=== PATIENT | female | born 1970 | race Caucasian/White ===

== ENCOUNTER 2019-02-26 11:06 | Emergency (ER) | payer SELFPAY ==
[~2019-02-26] VITALS: Wt 78.0 kg
[2019-02-26 11:10] VITALS: BP 152/98; PULSE 99; RESP 18
== END 2019-02-26 12:47 | disposition left against medical advice (07) ==
LOC: FTE 11:06
DX: Z53.21 Procedure and treatment not carried out due to patient leaving prior to being seen by health care provider (principal)